=== PATIENT | female | born 1980 | race Caucasian/White ===

== ENCOUNTER → 2023-04-29 12:17 | Outpatient (CLI) | payer BC, SELFPAY ==
--- NOTE | ~2023-04-29 | US_ITS ---
EXAMINATION: US soft tissue head and neck DATE: 04/29/2023 12:44 INDICATION: Left-sided cervical lymphadenopathy. TECHNIQUE: Multiple grayscale and Doppler ultrasound images of the head and neck were obtained. COMPARISON: None FINDINGS: There are normal superficial lymph node in the patient's area of concern in left neck. IMPRESSION: 1. No abnormal neck mass or lymphadenopathy. Reviewed, dictated and finalized at location A.
== END ==
DX: R59.0 Localized enlarged lymph nodes (principal)
CPT/HCPCS: 76536